=== PATIENT | female | born 1985 | race Caucasian/White ===

== ENCOUNTER 2017-05-06 18:25 | Emergency (ER) | payer OTHER ==
[~2017-05-06] VITALS: Ht 154.9 cm; Wt 77.5 kg
[~2017-05-06 18:25] MED LIST: CEPH-443 PO; DOCU-144 PO; FER325 PO; FERR240T9 PO; IBUP-1542 PO; PREN-39 PO
[2017-05-06 18:34] VITALS: Ht 154.9 cm; Wt 77.5 kg
[2017-05-06] MEDS ORDERED: ACETAMINOPHEN 325 MG TAB PO STA (19:07)
[2017-05-06] MEDS ORDERED: SOD CHLORIDE 0.9% 1,000 ML IV STA (19:07)
--- NOTE | 2017-05-06 19:25 | ERD ---
ER Documentation Chief Complaint Date/Time DATE: 05/06/17 TIME: 19:23 Chief Complaint vag bleed for 21 days, abd pain on c section site HPI 31-year-old female with a history of chronic anemia, presents the emergency department for complaints of vaginal bleeding 21 days with right sided pelvic cramping. She denies clots. She notes associated dizziness which she describes as feeling lightheaded. She denies any nausea, vomiting, dysuria, vaginal discharge, fever, chills, flank pain, or abdominal pain. Patient states that she experienced this 1 time before after giving to her child via . Patient states at that time she was put on control which alleviated her symptoms. Patient states she is not currently taking control per recommendation from her primary care provider. Patient states her PMD has instructed her to follow-up with a agricultural consultant to better manage her chronic anemia and does not want her beginning control until she is seen and evaluated. ROS All systems reviewed and are negative except as per history of present illness. Medications Home Meds Active Scripts Ondansetron (Ondansetron Odt) 4 Mg Tab.rapdis, 4 MG PO Q6H Y for NAUSEA AND/OR VOMITING, #10 TAB Prov:ANGELIQUE JIMENEZ PA-C 05/06/17 Naproxen* (Naprosyn*) 500 Mg Tablet, 500 MG PO BID for 10 Days, TAB Prov:ANGELIQUE JIMENEZ PA-C 05/06/17 Cephalexin* (Keflex*) 500 Mg Capsule, 500 MG PO QID for 10 Days, CAP Prov:MICHAEL OLIVO NP 06/03/16 Docusate Sodium* (Colace*) 100 Mg Capsule, 100 MG PO TID, #30 CAP Prov:MICHAEL OLIVO NP 06/03/16 Ibuprofen* (Motrin*) 600 Mg Tab, 600 MG PO Q6H Y for PAIN AND OR ELEVATED TEMP, #30 TAB Prov:MICHAEL OLIVO NP 06/03/16 Ferrous Sulfate* (Ferrous Sulfate*) 325 Mg Tabec, 325 MG PO TID, #120 TAB Prov:MICHAEL OLIVO NP 06/03/16 Reported Medications Ferrous Gluconate (Iron) 1 Tab Tablet, 1 TAB PO TID, TAB 04/15/16 Vits W-Ca,Fe,Fa(<1MG) ( Vitamins) 1 Tab Tablet, 1 TAB PO, TAB 04/15/16 Allergies Allergies: Coded Allergies: metoclopramide HCl (Verified Allergy, Unknown, rash, 04/15/16) PMhx/Soc History of Surgery: Yes () Anesthesia Reaction: No Hx Neurological Disorder: No Hx Respiratory Disorders: No Hx Cardiac Disorders: No Hx Psychiatric Problems: No Hx Miscellaneous Medical Probl: Yes (pre-eclampsia 2011, L ovarian cyst) Hx Alcohol Use: Yes (occasionally) Hx Substance Use: No Hx Tobacco Use: No Smoking Status: Never smoker Physical Exam Vitals Vital Signs Date Time Temp Pulse Resp B/P Pulse Ox O2 Delivery O2 Flow Rate FiO2 05/06/17 21:35 79 16 126/75 100 Room Air 05/06/17 21:23 79 16 126/75 100 Room Air 05/06/17 18:34 97.8 90 18 141/90 99 Physical Exam Const: Developed, well-nourished, no acute distress Head: Atraumatic Eyes: Normal Conjunctiva ENT: Normal External Ears, Nose and Mouth. Neck: Full range of motion..~ No meningismus. Resp: Clear to auscultation bilaterally Cardio: Regular rate and rhythm, no murmurs Abd: Soft, non tender, non distended. Normal bowel sounds Skin: No petechiae or rashes Back: No midline or flank tenderness Ext: No cyanosis, or edema Neur: Awake and alert Psych: Normal Mood and Affect Result Diagram: 05/06/17191405/06/171914 Results 24 hrs Laboratory Tests Test 05/06/17 19:15 White Blood Count 11.110^3/ul Red Blood Count 4.5510^6/ul Hemoglobin 12.6g/dl Hematocrit 37.7% Mean Corpuscular Volume 82.9fl Mean Corpuscular Hemoglobin 27.7pg Mean Corpuscular Hemoglobin Concent 33.4g/dl Red Cell Distribution Width 13.0% Platelet Count 50462^3/UL Mean Platelet Volume 10.2fl Neutrophils % 57.7% Lymphocytes % 31.3% Monocytes % 7.9% Eosinophils % 1.7% Basophils % 0.2% Nucleated Red Blood Cells % 0.0/100WBC Neutrophils # 6.410^3/ul Lymphocytes # 3.510^3/ul Monocytes # 0.910^3/ul Eosinophils # 0.210^3/ul Basophils # 0.010^3/ul Nucleated Red Blood Cells # 0.010^3/ul Urine Color YELLOW Urine Clarity CLEAR Urine pH 6.0 Urine Specific Lucas 1.017 Urine Ketones NEGATIVEmg/dL Urine Nitrite NEGATIVEmg/dL Urine Bilirubin NEGATIVEmg/dL Urine Urobilinogen NEGATIVEmg/dL Urine Leukocyte Esterase NEGATIVELeu/ul Urine Microscopic RBC 0/HPF Urine Microscopic WBC 2/HPF Urine Bacteria FEW/HPF Urine Hemoglobin 2+mg/dL Urine Glucose NEGATIVEmg/dL Urine Total Protein NEGATIVEmg/dl Sodium Level 142mmol/L Potassium Level 4.0mmol/L Chloride Level 103mmol/L Carbon Dioxide Level 26mmol/L Anion Gap 17 Blood Urea Nitrogen 16mg/dl Creatinine 0.61mg/dl Glucose Level 91mg/dl Calcium Level 9.7mg/dl Total Bilirubin 0.2mg/dl Direct Bilirubin 0.00mg/dl Indirect Bilirubin 0.2mg/dl Aspartate Amino Transf (AST/SGOT) 25IU/L Alanine Aminotransferase (ALT/SGPT) 38IU/L Alkaline Phosphatase 78IU/L Total Protein 8.7g/dl Albumin 5.0g/dl Globulin 3.70g/dl Albumin/Globulin Ratio 1.35 Serum HCG, Qualitative NEGATIVE Current Medications Medications (Trade) Dose Ordered Sig/Vickey Route PRN Reason Start Time Stop Time Status Last Admin Dose Admin Sodium Chloride (NS) 1,000 ml @ 1,000 mls/hr Q1H STAT IV 05/06/17 19:07 05/06/17 20:06 DC 05/06/17 19:23 Acetaminophen (Tylenol Tab) 650 mg ONCE STAT PO 05/06/17 19:07 05/06/17 19:10 DC 05/06/17 19:23 Procedures/MDM PROCEDURE: US Pelvis. CLINICAL INDICATION: 31 old female with vaginal bleeding. History of prior . TECHNIQUE: Multiple sonographic images of the pelvis were obtained utilizing a transabdominal and endovaginal technique. The images were reviewed on a PACS workstation. COMPARISON: Pelvic not of the sonogram 06/03/2016 12:04 a.m. FINDINGS: The retroverted uterus is visualized and measures 10.9 cm sagittal by 3.1 cm AP by 6.6 cm transverse. No gestational sac is identified. . The endometrial echo complex is thickened and measures 14 mm. There is no evidence for free fluid. The right ovary has a normal echotexture and measures 4.9 x 2.6 by 3.9 cm with normal blood flow on Doppler imaging. The left ovary has a normal echotexture and measures 3.6 x 4.2 x 2.3 cm. There is normal blood flow to the left ovary. No adnexal masses are noted. IMPRESSION: 1. No gestational sac or pole is identified. The differential diagnosis includes completed , ectopic or early IUP the for visualization of the gestational sac. When no IUP is demonstrated, correlation with serial beta HCG is recommended. With a quantitative beta HCG >2000, the differential diagnosis includes spontaneous or ectopic . Therefore, clinical follow-up is recommended including correlation with serial quantitative beta HCG levels and repeat sonogram with rising levels and/or/or localized or persistent pain. With quantitative beta HCG < 2000, the differential diagnosis includes early normal IVP or spontaneous or ectopic . Therefore, clinical follow-up is recommended including correlation with serial quantitative beta HCG levels and arising levels and / or persistent pain. 2. Retroverted uterus. 3. Findings were phoned to Angelique Jimenez. RPTAT:AAJJ Physician Deysi Date Time Electronically viewed and signed by Physician Deysi on 05/06/2017 20:47 JM/ CC: ANGELIQUE JIMENEZ PA-C This is a 31-year-old female with a history of prior who presents the emergency department for complaints of ongoing vaginal bleeding 21 days with right-sided pelvic cramping. Patient well-appearing, nontoxic and afebrile upon arrival. Patient experienced these symptoms one time prior after her C- section and symptoms were well controlled with control. She was advised by her primary care physician to refrain from starting control again until she is seen by agricultural consultant for her ongoing chronic iron deficiency anemia. Abdominal exam negative for tenderness or McBurney point tenderness CBC showed no evidence of systemic infection or severe anemia. CMP showed no evidence of electrolyte abnormalities, severe acidosis, alkalosis , renal failure, or liver disease. UA showed no evidence of acute infection or hematuria. Qualitative beta hCG negative Vaginal ultrasound unremarkable for any mass or decreased ovarian blood flow. Given these findings, the patients presentation is most consistent with dysfunctional uterine bleeding. I have low suspicion for acute ectopic , ovarian torsion, tubo-ovarian abscess, uterine fibroid, acute appendicitis or cholecystitis. Patient received a bolus of fluids and Tylenol in the emergency department and reported improvement of symptoms. Patient advised to follow-up with agricultural consultant and COUNSELING PSYCHOLOGIST as previously recommended. All lab work, imaging, and resources provided. Based on patient's history of present illness and physical examination the decision was made to discharge. The patient was re-evaluated after ED treatment and stabilizing measures, and symptoms have improved. There is no evidence of life threatening injuries or illnesses at this time. On re-examination, patient resting in no distress, stable vital signs, reports feeling better and safe for discharge with outpatient follow up with PMD in 1-2 days. Patient given return precautions. Departure Diagnosis: Primary Impression: Vaginal bleeding Additional Impressions: Excessive vaginal bleeding Dysfunctional uterine bleeding ANGELIQUE JIMENEZ PA-C May 06, 2017 19:24
[2017-05-06 19:28] LABS: ADD SCAN DIFF NO
[2017-05-06 19:32] LABS: BASOPHILS % 0.2 % (0.0-2.0); EOSINOPHILS # 0.2 10^3/ul (0.0-0.5); EOSINOPHILS % 1.7 % (0.0-7.0); HEMATOCRIT 37.7 % (37.0-47.0); HEMOGLOBIN 12.6 g/dl (12.0-16.0); LYMPHOCYTES # 3.5 10^3/ul (0.8-2.9); LYMPHOCYTES % 31.3 % (15.0-51.0); MEAN CORPUSCULAR HEMOGLOBIN 27.7 pg (29.0-33.0); MEAN CORPUSCULAR HGB CONC 33.4 g/dl (32.0-37.0); MEAN CORPUSCULAR VOLUME 82.9 fl (82.0-101.0); MEAN PLATELET VOLUME 10.2 fl (7.4-10.4); MONOCYTE # 0.9 10^3/ul (0.3-0.9); MONOCYTES % 7.9 % (0.0-11.0); NEUTROPHIL # 6.4 10^3/ul (1.6-7.5); NEUTROPHILS % 57.7 % (39.0-77.0); PLATELET COUNT 305 10^3/UL (140-415); RED BLOOD COUNT 4.55 10^6/ul (4.20-5.40); WHITE BLOOD COUNT 11.1 10^3/ul (4.8-10.8)
[2017-05-06 19:39] LABS: ADD UMIC YES; UR ASCORBIC ACID NEGATIVE (NEGATIVE); UR BACTERIA FEW /HPF (NONE SEEN); UR BILIRUBIN (Dip) NEGATIVE (NEGATIVE); UR BLOOD (Dip) 2+ mg/dL (NEGATIVE); UR CLARITY CLEAR (CLEAR); UR COLOR YELLOW (YELLOW); UR GLUCOSE (Dip) NEGATIVE (NEGATIVE); UR KETONES (Dip) NEGATIVE (NEGATIVE); UR LEUKOCYTE ESTERASE (Dip) NEGATIVE Leu/ul (NEGATIVE); UR NITRITE (Dip) NEGATIVE (NEGATIVE); UR RBC 0 /HPF (0-5); UR SPECIFIC GRAVITY (Dip) 1.017 (1.003-1.030); UR TOTAL PROTEIN (Dip) NEGATIVE (NEGATIVE); UR UROBILINOGEN (Dip) NEGATIVE (NEGATIVE)
[2017-05-06 19:52] LABS: ALBUMIN/GLOBULIN RATIO 1.35; BILIRUBIN,INDIRECT 0.2 mg/dl (0-1.1); BILIRUBIN,TOTAL 0.2 mg/dl (0.2-1.3); CALCIUM 9.7 mg/dl (8.4-10.2); CREATININE 0.61 mg/dl (0.44-1.00); TOTAL PROTEIN 8.7 g/dl (6.1-8.1)
--- NOTE | 2017-05-06 20:48 | RADRPT ---
PROCEDURE: US Pelvis. CLINICAL INDICATION: 31 old female with vaginal bleeding. History of prior . TECHNIQUE: Multiple sonographic images of the pelvis were obtained utilizing a transabdominal and endovaginal technique. The images were reviewed on a PACS workstation. COMPARISON: Pelvic not of the sonogram 06/03/2016 12:04 a.m. FINDINGS: The retroverted uterus is visualized and measures 10.9 cm sagittal by 3.1 cm AP by 6.6 cm transverse . No gestational sac is identified. . The endometrial echo complex is thickened and measures 14 mm. There is no evidence for free fluid. The right ovary has a normal echotexture and measures 4.9 x 2.6 by 3.9 cm with normal blood flow on Doppler imaging. The left ovary has a normal echotexture and measures 3.6 x 4.2 x 2.3 cm. There is normal blood cory w to the left ovary. No adnexal masses are noted. IMPRESSION: 1. No gestational sac or pole is identified. The differential diagnosis includes completed a bortion, ectopic or early IUP the for visualization of the gestational sac. When no IUP i s demonstrated, correlation with serial beta HCG is recommended. With a quantitative beta HCG >2000, the differential diagnosis includes spontaneous or ecto pic . Therefore, clinical follow-up is recommended including correlation with serial quant itative beta HCG levels and repeat sonogram with rising levels and/or/or localized or persistent nallely n. With quantitative beta HCG < 2000, the differential diagnosis includes early normal IVP or spontaneo us or ectopic . Therefore, clinical follow-up is recommended including correlatio n with serial quantitative beta HCG levels and arising levels and / or persistent pain. 2. Retroverted uterus. 3. Findings were phoned to Angelique Jimenez. RPTAT:AAJJ Physician Deysi Date Time Electronically viewed and signed by Physician Deysi on 05/06/2017 20:47 ROMERO/
[2017-05-06] MEDS ORDERED: NAPR-260 PO (21:00)
[2017-05-06] MEDS ORDERED: ONDA4TAB14 PO (21:01)
[2017-05-06 21:35] VITALS: BP 126/75; PULSE 79; RESP 16
== END 2017-05-06 21:33 | disposition home or self-care (01) ==
LOC: FTE 18:25
DX: N93.8 Other specified abnormal uterine and vaginal bleeding (principal); R10.2 Pelvic and perineal pain
CPT/HCPCS: 36415; 76830; 76856; 80053; 81001; 84703; 85025; J7030; Z7502; Z7610

== ENCOUNTER 2019-02-19 19:38 | Emergency (ER) | payer OTHER ==
[~2019-02-19] VITALS: Ht 154.9 cm; Wt 77.9 kg
[~2019-02-19 19:38] MED LIST changes: +NAPR-985 PO; +ONDA4TAB14 PO
[2019-02-19 19:46] VITALS: Ht 154.9 cm; Wt 77.9 kg
--- NOTE | 2019-02-19 21:37 | ERD ---
ER Documentation Chief Complaint Chief Complaint Cramping, dizziness, LOVE, bleeding x 25 days HPI 33-year-old female presents to the emergency room with approximately 3 months of irregular and heavy menses. She states that she used to be regular approximately 3-4 months ago however the last several months she is having increasing duration and volume of bleeding during her menstrual cycle. She has seen an [facility] and tried Provera without success. She is noting some abdominal cramping. She notes that she has been bleeding vaginally for 26 days. She denies any lightheadedness, no generalized weakness. ROS All systems reviewed and are negative except as per history of present illness. Medications Home Meds Active Scripts Ondansetron (Ondansetron Odt) 4 Mg Tab.rapdis, 4 MG PO Q6H PRN for NAUSEA AND/OR VOMITING, #10 TAB Prov:KAYLEIGH RANGEL PA-C 05/06/17 Naproxen* (Naprosyn*) 500 Mg Tablet, 500 MG PO BID for 10 Days, TAB Prov:KAYLEIGH RANGEL PA-C 05/06/17 Cephalexin* (Keflex*) 500 Mg Capsule, 500 MG PO QID for 10 Days, CAP Prov:MICHAEL OLIVO NP 06/03/16 Docusate Sodium* (Colace*) 100 Mg Capsule, 100 MG PO TID, #30 CAP Prov:MICHAEL OLIVO NP 06/03/16 Ibuprofen* (Motrin*) 600 Mg Tab, 600 MG PO Q6H PRN for PAIN AND OR ELEVATED TEMP, #30 TAB Prov:MICHAEL OLIVO NP 06/03/16 Ferrous Sulfate* (Ferrous Sulfate*) 325 Mg Tabec, 325 MG PO TID, #120 TAB Prov:MICHAEL OLIVO NP 06/03/16 Reported Medications Ferrous Gluconate (Iron) 1 Tab Tablet, 1 TAB PO TID, TAB 04/15/16 Vits W-Ca,Fe,Fa(<1MG) ( Vitamins) 1 Tab Tablet, 1 TAB PO, TAB 04/15/16 Allergies Allergies: Coded Allergies: metoclopramide HCl (Verified Allergy, Unknown, rash, 04/15/16) PMhx/Soc History of Surgery: Yes ( X 2.) Anesthesia Reaction: No Hx Neurological Disorder: No Hx Respiratory Disorders: No Hx Cardiac Disorders: No Hx Psychiatric Problems: No Hx Miscellaneous Medical Probl: Yes (pre-eclampsia 2012, L ovarian cyst) Hx Alcohol Use: Yes (occasionally) Hx Substance Use: No Hx Tobacco Use: No Smoking Status: Never smoker FmHx Family History: No diabetes Physical Exam Vitals Vital Signs Date Temp Pulse Resp B/P (MAP) Pulse Ox O2 O2 Flow FiO2 Time Delivery Rate 02/19/19 98.9 95 16 163/68 100 19:46 (99) Physical Exam General: Well developed, well nourished, no acute distress Head: Normocephalic, atraumatic. Eyes: Pupils equally reactive, EOM intact ENT: Moist mucous membranes Neck: Supple, no lymphadenopathy Respiratory: Lungs clear bilaterally, no distress Cardiovascular: RRR, no murmurs, rubs, or gallops Abdominal: Soft, non-tender, non-distended, no peritoneal signs : Deferred MSK: No edema, no unilateral swelling, 5/5 strength Neurologic: Alert and oriented, moving all extremities, normal speech, no focal weakness, no cerebellar signs Skin: No rash Psych: Normal mood Result Diagram: 02/19/19203502/19/192035 Results 24 hrs Laboratory Tests Test 02/19/19 20:36 02/19/19 20:41 White Blood Count 13.6 10^3/ul Red Blood Count 4.00 10^6/ul Hemoglobin 10.5 g/dl Hematocrit 32.9 % Mean Corpuscular Volume 82.3 fl Mean Corpuscular Hemoglobin 26.3 pg Mean Corpuscular Hemoglobin Concent 31.9 g/dl Red Cell Distribution Width 12.8 % Platelet Count 441 10^3/UL Mean Platelet Volume 10.0 fl Immature Granulocytes % 0.700 % Neutrophils % 56.6 % Lymphocytes % 32.9 % Monocytes % 8.1 % Eosinophils % 1.4 % Basophils % 0.3 % Nucleated Red Blood Cells % 0.0 /100WBC Immature Granulocytes # 0.100 10^3/ul Neutrophils # 7.7 10^3/ul Lymphocytes # 4.5 10^3/ul Monocytes # 1.1 10^3/ul Eosinophils # 0.2 10^3/ul Basophils # 0.0 10^3/ul Nucleated Red Blood Cells # 0.0 10^3/ul Sodium Level 141 mmol/L Potassium Level 3.7 mmol/L Chloride Level 99 mmol/L Carbon Dioxide Level 29 mmol/L Anion Gap 13 Blood Urea Nitrogen 15 mg/dl Creatinine 0.79 mg/dl Est Glomerular Filtrat Rate mL/min > 60 mL/min Glucose Level 82 mg/dl Calcium Level 9.7 mg/dl POC Beta HCG, Qualitative NEGATIVE Procedures/MDM EKG, MONITORS, & DIAGNOSTIC IMAGING: Pelvic ultrasound: Pending LAB INTERPRETATION: I reviewed the laboratory testing and it shows slight leukocytosis, stable hemoglobin MEDICAL DECISION MAKING: Patient presents with menorrhagia and dysmenorrhea. The patient has been following up with [facility] using Provera without success. The patient is having abdominal cramping therefore ultrasound to rule out uterine process such as fibroid would be reasonable. The patient exhibits no signs or symptoms concerning for ectopic . She appears to be hemodynamically stable. I will evaluate for need for transfusion. Patient likely needs to follow-up with [facility] for further investigation of dysmenorrhea and menorrhagia. ER COURSE: * Hemoglobin stable, no indication for transfusion * The patient's pelvic ultrasound is still pending at the time of senna. Patient will be endorsed for follow-up. If negative patient can be safely discharged with close [facility] follow-up. CONSULTATION: None DISPOSITION PLAN: Anticipate discharge The patient does not have an identifiable emergent medical condition that warrants inpatient hospitalization at this time. The patient is deemed safe for discharge with outpatient follow-up. We discussed follow up with the patient's primary care doctor within 24 to 48 hours as needed. We also discussed return to the emergency room for worsening symptoms or worsening condition. Outpatient referral [facility] Discharge Medications: None required Departure Diagnosis: Primary Impression: Menorrhagia Menorrahagia type: with irregular cycle Qualified Codes: N92.1 - Excessive and frequent menstruation with irregular cycle Additional Impression: Dysmenorrhea Condition: Stable DELONTE ARRIAGA MD Feb 19, 2019 21:37
[2019-02-20] VITALS: BP 125/70; PULSE 78; RESP 18
== END 2019-02-20 | disposition home or self-care (01) ==
LOC: E/R 19:38
DX: N92.1 Excessive and frequent menstruation with irregular cycle (principal); N94.6 Dysmenorrhea, unspecified; R10.2 Pelvic and perineal pain
CPT/HCPCS: 36415; 76830; 76856; 80048; 81025; 85025; Z7502